=== PATIENT | male | born 1990 | race American Indian/Alaskan Native ===

== ENCOUNTER 2018-03-29 07:20 | Outpatient (CLI) | payer OTHER ==
--- NOTE | 2018-03-29 16:08 | Cat Scan Report ---
FINAL REPORT EXAM: CT ORBITS/EAR/FOSSA WO/W CON HISTORY: RIGHT ORBITAL FLOOR FRACTURE TECHNIQUE: CT of the orbits with IV contrast. Coronal and sagittal reconstructed images were provided. PRIORS: None currently available. FINDINGS: Fracture involving the floor of the right orbit is comminuted and involves the infraorbital foramina. There is a 0.7 mm caudal depression of the anterior aspect of the fracture. There is a 1.8 mm posterior displacement of the anterior portion of the fracture. Fracture extends into the maxillary sinus. No herniation of the intraorbital contents noted. Series 3:19 demonstrates a hairline fracture of the right lamina papyracea with no significant displacement. Right orbital roof is intact. Right lateral wall is unremarkable. Left orbital osseous structures are unremarkable. The globes are intact. There is no vitreous hemorrhage. The lenses are unremarkable. There is no retinal hemorrhage. The retro-bulbar regions are grossly negative. Paranasal sinuses are developed. Patient status post bilateral uncinectomy. Small polyp or retention cysts in the right sphenoid sinus measures 9.3 mm. Szdg-cc-lufopsgy mucosal thickening in both ethmoid sinuses. Series 3:6 demonstrates a soft tissue lesion in the right posterior nasal cavity measuring 8 x 15 mm which may represent a polyp. Right orbital floor fracture extends into the anterior wall of the right maxillary sinus which is comminuted and there is a 4 mm posterior depression of the anterior fragment. Nasal bridge and septum appear intact. Nasal septum is mildly deviated to the left. There is no zygomatic arch fracture. There is no fracture the temporomandibular joints. Temporal bones are unremarkable. Mastoid air cells are aerated. IMPRESSION: Comminuted fracture of the right orbital floor extends into the anterior wall of the right maxillary sinus. Hairline fracture of the right lamina papyracea is nondisplaced. Sinus disease and postsurgical changes. Possible polyp in the right posterior nasal cavity.
== END 2018-03-29 07:21 | disposition home or self-care (01) ==
LOC: CT 07:20
PROVIDERS: ATTEND Family Medicine
DX: S02.31XA Fracture of orbital floor, right side, initial encounter for closed fracture (principal); X58.XXXA Exposure to other specified factors, initial encounter; Y93.89 Activity, other specified; Y92.89 Other specified places as the place of occurrence of the external cause; Y99.8 Other external cause status
CPT/HCPCS: 70482; Q9967